=== PATIENT | female | born 1950 | race Caucasian/White ===

== ENCOUNTER 2018-05-25 05:36 | Inpatient (IN) | payer MEDICARE, BC ==
[~2018-05-25] VITALS: Ht 157.5 cm; Wt 50.4 kg
[2018-05-25] VITALS (19 sets, daily range): BP systolic 110–147; BP diastolic 48–68; PULSE 82–108; RESP 10–20; Ht 157.5 cm; Wt 50.4 kg
[2018-05-25] MEDS ORDERED: CEFAZOLIN 2 GM/50 ML (PMX) 50 ML IVPB SCH (06:00)
[2018-05-25] MEDS ORDERED: LACTATED RINGER'S 1,000 ML IV* ONE (06:00)
[2018-05-25] MEDS ORDERED: THROMBIN (BOVINE) 5,000 UNIT VIAL TP ONE (07:02)
[2018-05-25] MEDS ORDERED: HEPARIN 1000 UNITS/ML 10 ML INJ ONE (07:02)
[2018-05-25] MEDS ORDERED: GELATIN SIZE 100 SPONGE ONE (07:02)
[2018-05-25] MEDS ORDERED: CEFAZOLIN 1 GM INJ ONE ×2 (07:02→07:42)
[2018-05-25] MEDS ORDERED: BUPIVACAINE 0.5%/EPI (SDV) 30 ML INJ ONE ×2 (07:02→12:50)
[2018-05-25] MEDS ORDERED: THYR120T PO (07:11)
[2018-05-25] MEDS ORDERED: BUPR300T48 PO (07:11)
[2018-05-25] MEDS ORDERED: SUVO10TA2 PO (07:12)
[2018-05-25] MEDS ORDERED: QUET25TA33 PO (07:13)
[2018-05-25] MEDS ORDERED: CITA20TA8 PO (07:14)
--- NOTE | 2018-05-25 07:22 | PREAC ---
Date/Time of Note Date/Time of Note DATE: 05/25/18 TIME: 07:21 Anesthesia Eval and Record Evaluation Time Pre-Procedure Interview DATE: 05/25/18 TIME: 07:21 Age 67 Sex female NPO: 8 hrs Preoperative diagnosis Lumbar DDD Planned procedure L2-5 anterior lumbar fusion Past Medical History Past Medical History: Includes Endo: Hypothyroid Surgery & Anesthesia Issues No known issue Meds Anticoagulation: No Beta Verónica within 24 hr: No Reason Beta Verónica not given: Pt. not on B-Verónica Reported Medications Citalopram Hydrobromide* (Citalopram Hydrobromide*) 20 Mg Tablet, 20 MG PO DAILY, #30 TAB 05/25/18 Quetiapine Fumarate* (Quetiapine Fumarate*) 25 Mg Tablet, 25 MG PO BID 05/25/18 Suvorexant (Belsomra) 10 Mg Tablet, 10 MG PO BID 05/25/18 Thyroid* ([place] Thyroid*) 120 Mg Tablet, 120 MG PO DAILY, TAB 05/25/18 Bupropion Hcl* (Wellbutrin XL*) 300 Mg Tab.sr.24h, 300 MG PO DAILY, TAB.SA 05/25/18 Current Medications Cefazolin Sodium/ Dextrose 50 ml @ 100 mls/hr PRE-OP IVPB ; Start 05/25/18 at 06:00; Stop 05/25/18 at 16:00 Meds reviewed: Yes Allergies Coded Allergies: Sulfa (Sulfonamide Antibiotics) (Verified Allergy, Unknown, 05/25/18) Allergies Reviewed: Yes Labs/Studies Labs Reviewed: Reviewed by anesthesiologist Blood Bank Test 05/25/18 06:31 Blood Product Summary Counts test: Negative Studies: ECG Pre-procedure Exam Last vitals Vital Signs Date Temp Pulse Resp B/P (MAP) Pulse Ox O2 O2 Flow FiO2 Time Delivery Rate 05/25/18 97.7 82 18 110/59 97 Room Air 06:27 (76) Airway: Adequate mouth opening, Adequate thyromental dist Mallampati: Mallampati II Teeth: Normal Lung: Normal Heart: Normal ASA Physical Status ASA physical status: 2 Emergency: None Planned Anesthetic General/MAC: ETT, A Line Pre-operative Attestations Prior to commencing anesthesia and surgery, the patient was re-evaluated, there was verification of: *The patient's identity *The results of appropriate recent lab work and preoperative vital signs *The above evaluation not changing prior to induction *Anesthetic plan, risk benefits, alternative and complications discussed with patient/family; questions answered; patient/family understands, accepts and wishes to proceed. PINO WATKINS May 25, 2018 07:22
--- NOTE | 2018-05-25 07:23 | HPN ---
Date/Time of Note Date/Time of Note DATE: 05/25/18 TIME: 07:22 Interval H&P Admission Note Pt. seen H&P reviewed: No system changes MARY JUAREZ MD May 25, 2018 07:23
[2018-05-25] MEDS ORDERED: HYDROmorphONE 1 MG/5 ML IV SYRINGE IV PRN ×3 (07:30)
[2018-05-25] MEDS ORDERED: ONDANSETRON 4 MG INJ IV PRN ×2 (07:30→15:00)
[2018-05-25] MEDS ORDERED: DIPHENHYDRAMINE 50 MG INJ IV PRN (07:30)
[2018-05-25] MEDS ORDERED: ALBUTEROL 0.083% (NEB) 2.5 MG/3 ML AMP HHN PRN (07:30)
[2018-05-25] MEDS ORDERED: METOCLOPRAMIDE 10 MG INJ IV PRN (07:30)
[2018-05-25] MEDS ORDERED: MEPERIDINE 25 MG INJ IV PRN (07:30)
[2018-05-25] MEDS ORDERED: FENTAnyl 50 MCG/ML VIAL IV PRN ×2 (07:30)
[2018-05-25] MEDS ORDERED: LIDOCAINE 100 MG SYRINGE ONE (07:42)
[2018-05-25] MEDS ORDERED: PROPOFOL 20 ML ONE (07:42)
[2018-05-25] MEDS ORDERED: SUCCINYLCHOLINE CHLORIDE 100 MG/5 ML SYG IV ONE (07:42)
[2018-05-25] MEDS ORDERED: FENTAnyl 50 MCG/ML VIAL ONE ×4 (07:42→12:09)
[2018-05-25] MEDS ORDERED: MIDAZOLAM 1 MG/ML 2 ML INJ ONE (08:04)
[2018-05-25] MEDS ORDERED: HEMOSTATIC MATRIX SYG ZFS ONE (09:19)
[2018-05-25] MEDS ORDERED: DEXAMETHASONE 4 MG/ML 5 ML INJ ONE (11:10)
[2018-05-25] MEDS ORDERED: AL HYDROX/MG HYDROX/SIMETH 30 ML CUP PO PRN (15:00)
[2018-05-25] MEDS ORDERED: NALOXONE (0.4 MG/ML) INJ IV PRN (15:00)
[2018-05-25] MEDS ORDERED: HYDROCODONE/APAP (5/325) TAB PO PRN ×2 (15:00)
[2018-05-25] MEDS ORDERED: PROCHLORPERAZINE 10 MG TAB PO PRN (15:00)
[2018-05-25] MEDS ORDERED: NACL 0.9% 3 ML SYG IV SCH (15:00)
[2018-05-25] MEDS ORDERED: ACETAMINOPHEN 325 MG TAB PO PRN (15:00)
--- NOTE | 2018-05-25 15:16 | OPR ---
Date/Time of Note Date/Time of Note DATE: 05/25/18 TIME: 14:56 Operative Report Free Text/Dictation DATE OF OPERATION: 05/25/2018 PREOPERATIVE DIAGNOSES: 1. L3-4 degenerative disk disease with foraminal stenosis and adult scoliosis w/ positive sagittal balance spinal stenosis 2. L4-5 degenerative disk disease with foraminal stenosis and adult scoliosis w/ positive sagittal balance spinal stenosis POSTOPERATIVE DIAGNOSES: 1. L3-4 degenerative disk disease with foraminal stenosis and adult scoliosis w/ positive sagittal balance spinal stenosis 2. L4-5 degenerative disk disease with foraminal stenosis and adult scoliosis w/ positive sagittal balance spinal stenosis OPERATION PERFORMED: 1. Anterior lumbar interbody fusion via transpsoas approach L3-4 2. Anterior lumbar interbody fusion via transpsoas approach L4-5 3. Placement of anterior interbody device L3-4 4. Placement of anterior interbody device L4-5 4.. Placement of posterior spinal segmental instrumentation L3-5 4. Posterior spinal fusion L3-5 5. Use of morselized allograft bone. SURGEON: Mary Juarez MD ANESTHESIA: General endotracheal. ESTIMATED BLOOD LOSS: 250 cc SURGICAL INDICATION: The patient is a 67 year-old woman who presents with an increasing history of back and buttuck and leg pain. The patient was found to have severe degenerative disk disease with foraminal stenosis at L3-4 and L4- L5 with scoliosis and positive sagittal balance. The patient had failed conservative treatments. Risks, benefits and alternatives to an anterior and posterior spinal fusion with instrumentation were explained to the patient including but not exclusive of bleeding, infection, visceral injury, nerve injury, nonunion, instrumentation failure, lack of symptom relief, myocardial infarction, stroke, and pulmonary embolism, and they wished to proceed. DESCRIPTION OF TECHNIQUE: The patient was identified in the preoperative area and taken to the operating room. Rapid induction of general endotracheal anesthesia was performed. Patient was given 2 g of cefazolin for prophylaxis. The patient was then placed in the right lateral decubitus position (left side up) with an axillary roll placed. Tape was applied across the torso and down the legs for further stabilization of the patient to the table. The left flank was then prepped and draped in the usual sterile manner. Using intraoperative fluoroscopy, the L4-5 disc space was then clearly identified. The skin was injected using 0.25% Marcaine with epinephrine. A posterolateral incision was then created using a 10 blade. Further dissection through soft tissue was performed bluntly using Metzenbaum scissors to enter the retroperitoneal space. Manual palpation was used to palpate the peritoneum and the peritoneum was swept in a ventral direction. A direct lateral incision was then created using a 10 blade. Further dissection through soft tissue was again performed bluntly using Metzenbaum scissors, guided manually through the posterolateral incision. The retroperitoneal space was then directly entered. . Manual palpation was used to palpate the peritoneum and the peritoneum was swept in a ventral direction. The starting dilator was guided down to the lateral aspect of the psoas muscle, while protecting the peritoneum. Both intraoperative fluoroscopy, as well as neuromonitoring were used to guide the dilator down to the lateral aspect of the disc space, while avoiding the lumbar plexus. A guidewire was then passed through the dilator into the disc space itself. Sequential dilation was performed. A final retractor was applied and stabilized to the table. The retractor was opened gently, just enough to visualize the lateral aspect of the disc space. Fibers of the psoas muscle were directly visualized and gently swept ventrally using a retractor. Again, the surgical field was probe to ensure that no neural elements remained in the surgical field itself. Attention was turned toward the anterior lumbar interbody fusion at L4-5. The lateral anulus was incised using a 15 blade. Disk material was then removed using pituitary rongeurs and curettes. Care was taken to release the contralateral anulus using Greenberg elevators. The endplates were then decorticated using a rasp. Attention was turned toward placement of the anterior interbody device at L4-5. Trial spacers were inserted. A 8 x 18 x 45 mm PEEK cage (10 degree lordotic) was then selected and filled using Osteocel pro morcellized allograft bone with stem cells. The cage was inserted into the disc space and malleted into place over slides. AP and lateral views of fluoroscopy confirmed the appropriate placement of the cage. We then focused on the L3-4 level. Using intraoperative fluoroscopy, the L3-4 disc space was clearly identified. The skin was injected using 0.25% Marcaine with epinephrine. A posterolateral incision was then created using a 10 blade. Further dissection through soft tissue was performed bluntly using Metzenbaum scissors to enter the retroperitoneal space. Manual palpation was used to palpate the peritoneum and the peritoneum was swept in a ventral direction. A direct lateral incision was then created using a 10 blade. Further dissection through soft tissue was again performed bluntly using Metzenbaum scissors, guided manually through the posterolateral incision. The retroperitoneal space was then directly entered. The starting dilator was guided down to the lateral aspect of the psoas muscle, while protecting the peritoneum. Both intraoperative fluoroscopy, as well as neuromonitoring were used to guide the dilator down to the lateral aspect of the disc space, while avoiding the lumbar plexus. A guidewire was then passed through the dilator into the disc space itself. Sequential dilation was performed. A final retractor was applied and stabilized to the table. The retractor was opened gently, just enough to visualize the lateral aspect of the disc space. Fibers of the psoas muscle were directly visualized and gently swept ventrally using a retractor. Again, the surgical field was probed to ensure that no neural elements remained in the surgical field itself. Attention was turned toward the anterior lumbar interbody fusion at L3-4. The lateral anulus was incised using a 15 blade. Disk material was then removed using pituitary rongeurs and curettes. Care was taken to release the contralateral anulus using Greenberg elevators. The endplates were then decorticated using a rasp. Attention was turned toward placement of the anterior interbody device at L3-4. Trial spacers were inserted. A 8 x 18 x 45 mm PEEK cage (10 degree lordotic) was then selected and filled using Osteocel pro morcellized allograft bone with stem cells. The cage was inserted into the disc space and malleted into place over slides. AP and lateral views of fluoroscopy confirmed the appropriate placement of the cage. The incisions were then copiously irrigated using sterile saline. As we removed the retractor we made sure that there was no loops of bowel and we were in the retroperitoneal cavity. The fascia was then closed in layers using 1 vicryl. Subcutaneous tissue was closed using 2-0 Vicryl in interrupted fashion. Skin was closed using a running 4-0 Monocryl stitch. The wounds were dressed using Dermabond, sterole 4x4 gauze and Tegaderm. Attention was turned toward placement of posterior spinal segmental instrumentation. The patient was flipped to the prone position on a Hunter table. All her bony prominensces were well padded. The patient was prepped and draped in the usual sterile manner. in Another time out was held. Using intraoperative fluoroscopy, the pedicles were identified at each level (L3, L4 and L5). Care was taken to alter the fluoroscopic view to have a true AP and lateral at each level. Jamshidi needles were then passed down to the lateral aspect of the pedicles through stab incisions. The Jamshidi needles were malleted into the pedicles. Care was taken to ensure that the needles did not pass the medial wall of the pedicle on the AP view prior to checking that the needle was past the posterior wall of the vertebral body. This was laos checked on the lateral view. The needles were then malleted further into the vertebral bodies themselves. Guidewires were passed through the needles and the needles were removed. Taps were applied over the guidewires. Screws were then placed bilaterally into the vertebral bodies. AP and lateral views confirmed appropriate placement of the instrumentation. The Jamshidi needles and taps were all advanced with neurominitoring. Attention was turned toward the posterior spinal fusion at L3-5. Rods were selected of the appropriate length and placed into the screw heads. End caps were applied and final tightening was performed using a tilfio-[id number]-nxxopn wrench. The exposed facet joints were decorticated using a high-speed bur. A small remaining amount of Osteocel was placed into the facet joints to facilitate the posterior fusion. All screws were stimulated to help ensure that there was no breach. The wound was irrigated copiously using normal saline. The fascia was then closed using 1 Vicryl in interrupted fashion. Subcutaneous tissue was closed using 2-0 Vicryl in interrupted fashion. Skin was closed using a running 4-0 Monocryl stitch. The wounds were dressed using Dermabond, sterile 4x4 gauze and Tegaderm. The patient was returned to the supine position. The patient was extubated immediately postoperatively and taken to the recovery room in stable condition. Procedure Date: May 25, 2018 Preoperative Diagnosis 1. L3-4 degenerative disk disease with foraminal stenosis and adult scoliosis w/ positive sagittal balance spinal stenosis 2. L4-5 degenerative disk disease with foraminal stenosis and adult scoliosis w/ positive sagittal balance spinal stenosis Postoperative Diagnosis 1. L3-4 degenerative disk disease with foraminal stenosis and adult scoliosis w/ positive sagittal balance spinal stenosis 2. L4-5 degenerative disk disease with foraminal stenosis and adult scoliosis w/ positive sagittal balance spinal stenosis Operation/Procedure Performed 1. Anterior lumbar interbody fusion via transpsoas approach L3-4 2. Anterior lumbar interbody fusion via transpsoas approach L4-5 3. Placement of anterior interbody device L3-4 4. Placement of anterior interbody device L4-5 4.. Placement of posterior spinal segmental instrumentation L3-5 4. Posterior spinal fusion L3-5 5. Use of morselized allograft bone. Surgeon see signature line Scientific Process Operator ALEXY Albarran Anesthesia Type: general Estimated Blood Loss: 200 - 250 ml's Transfusion none Specimen None Grafts/Implants Nuvasive XLIF [id number] mm 10 degree lordotic cages x 2 NuVasive Pedicle Screws L3: 4.5 x 35 x 2 L4: 5.5 x 40 mm x2 L5: 6.5 mm x 40 mm x 2 70 mm Rods x 2 Complications none Pt Condition Post Procedure: stable Disposition: PACU Procedure Description DESCRIPTION OF TECHNIQUE: The patient was identified in the preoperative area and taken to the operating room. Rapid induction of general endotracheal anesthesia was performed. Patient was given 2 g of cefazolin for prophylaxis. The patient was then placed in the right lateral decubitus position (left side up) with an axillary roll placed. Tape was applied across the torso and down the legs for further stabilization of the patient to the table. The left flank was then prepped and draped in the usual sterile manner. Using intraoperative fluoroscopy, the L4-5 disc space was then clearly identified. The skin was injected using 0.25% Marcaine with epinephrine. A posterolateral incision was then created using a 10 blade. Further dissection through soft tissue was performed bluntly using Metzenbaum scissors to enter the retroperitoneal space. Manual palpation was used to palpate the peritoneum and the peritoneum was swept in a ventral direction. A direct lateral incision was then created using a 10 blade. Further dissection through soft tissue was again performed bluntly using Metzenbaum scissors, guided manually through the posterolateral incision. The retroperitoneal space was then directly entered. . Manual palpation was used to palpate the peritoneum and the peritoneum was swept in a ventral direction. The starting dilator was guided down to the lateral aspect of the psoas muscle, while protecting the peritoneum. Both intraoperative fluoroscopy, as well as neuromonitoring were used to guide the dilator down to the lateral aspect of the disc space, while avoiding the lumbar plexus. A guidewire was then passed through the dilator into the disc space itself. Sequential dilation was performed. A final retractor was applied and stabilized to the table. The retractor was opened gently, just enough to visualize the lateral aspect of the disc space. Fibers of the psoas muscle were directly visualized and gently swept ventrally using a retractor. Again, the surgical field was probe to ensure that no neural elements remained in the surgical field itself. Attention was turned toward the anterior lumbar interbody fusion at L4-5. The lateral anulus was incised using a 15 blade. Disk material was then removed using pituitary rongeurs and curettes. Care was taken to release the contralateral anulus using Greenberg elevators. The endplates were then decorticated using a rasp. Attention was turned toward placement of the anterior interbody device at L4-5. Trial spacers were inserted. A 8 x 18 x 45 mm PEEK cage (10 degree lordotic) was then selected and filled using Osteocel pro morcellized allograft bone with stem cells. The cage was inserted into the disc space and malleted into place over slides. AP and lateral views of fluoroscopy confirmed the appropriate placement of the cage. We then focused on the L3-4 level. Using intraoperative fluoroscopy, the L3-4 disc space was clearly identified. The skin was injected using 0.25% Marcaine with epinephrine. A posterolateral incision was then created using a 10 blade. Further dissection through soft tissue was performed bluntly using Metzenbaum scissors to enter the retroperitoneal space. Manual palpation was used to palpate the peritoneum and the peritoneum was swept in a ventral direction. A direct lateral incision was then created using a 10 blade. Further dissection through soft tissue was again performed bluntly using Metzenbaum scissors, guided manually through the posterolateral incision. The retroperitoneal space was then directly entered. The starting dilator was guided down to the lateral aspect of the psoas muscle, while protecting the peritoneum. Both intraoperative fluoroscopy, as well as neuromonitoring were used to guide the dilator down to the lateral aspect of the disc space, while avoiding the lumbar plexus. A guidewire was then passed through the dilator into the disc space itself. Sequential dilation was performed. A final retractor was applied and stabilized to the table. The retractor was opened gently, just enough to visualize the lateral aspect of the disc space. Fibers of the psoas muscle were directly visualized and gently swept ventrally using a retractor. Again, the surgical field was probed to ensure that no neural elements remained in the surgical field itself. Attention was turned toward the anterior lumbar interbody fusion at L3-4. The lateral anulus was incised using a 15 blade. Disk material was then removed using pituitary rongeurs and curettes. Care was taken to release the contralateral anulus using Greenberg elevators. The endplates were then decorticated using a rasp. Attention was turned toward placement of the anterior interbody device at L3-4. Trial spacers were inserted. A 8 x 18 x 45 mm PEEK cage (10 degree lordotic) was then selected and filled using Osteocel pro morcellized allograft bone with stem cells. The cage was inserted into the disc space and malleted into place over slides. AP and lateral views of fluoroscopy confirmed the appropriate placement of the cage. The incisions were then copiously irrigated using sterile saline. As we removed the retractor we made sure that there was no loops of bowel and we were in the retroperitoneal cavity. The fascia was then closed in layers using 1 vicryl. Subcutaneous tissue was closed using 2-0 Vicryl in interrupted fashion. Skin was closed using a running 4-0 Monocryl stitch. The wounds were dressed using Dermabond, sterole 4x4 gauze and Tegaderm. Attention was turned toward placement of posterior spinal segmental instrumentation. The patient was flipped to the prone position on a Hunter table. All her bony prominensces were well padded. The patient was prepped and draped in the usual sterile manner. in Another time out was held. Using intraoperative fluoroscopy, the pedicles were identified at each level (L3, L4 and L5). Care was taken to alter the fluoroscopic view to have a true AP and lateral at each level. Jamshidi needles were then passed down to the lateral aspect of the pedicles through stab incisions. The Jamshidi needles were ma lleted into the pedicles. Care was taken to ensure that the needles did not pass the medial wall of the pedicle on the AP view prior to checking that the needle was past the posterior wall of the vertebral body. This was laos checked on the lateral view. The needles were then malleted further into the vertebral bodies themselves. Guidewires were passed through the needles and the needles were removed. Taps were applied over the guidewires. Screws were then placed bilaterally into the vertebral bodies. AP and lateral views confirmed appropriate placement of the instrumentation. The Jamshidi needles and taps were all advanced with neurominitoring. Attention was turned toward the posterior spinal fusion at L3-5. Rods were selected of the appropriate length and placed into the screw heads. End caps were applied and final tightening was performed using a rjolcm-stajeat-tktlxc wrench. The exposed facet joints were decorticated using a high-speed bur. A small remaining amount of Osteocel was placed into the facet joints to facilitate the posterior fusion. All screws were stimulated to help ensure that there was no breach. The wound was irrigated copiously using normal saline. The fascia was then closed using 1 Vicryl in interrupted fashion. Subcutaneous tissue was closed using 2-0 Vicryl in interrupted fashion. Skin was closed using a running 4-0 Monocryl stitch. The wounds were dressed using Dermabond, sterile 4x4 gauze and Tegaderm. The patient was returned to the supine position. The patient was extubated immediately postoperatively and taken to the recovery room in stable condition. MARY JUAREZ MD May 25, 2018 15:08
[2018-05-25] MEDS: FENTAnyl 50 MCG/ML VIAL IV PRN ×2 (15:40→15:53)
[2018-05-25] MEDS: HYDROmorphONE 0.2 MG/ML PCA IV SCH (16:08)
--- NOTE | 2018-05-25 16:46 | CONS ---
Assessment/Plan Assessment/Plan Problems: (1) Spinal stenosis of lumbar region Comment: s/p multilevel ALIF w instrumentation (2) IBS (irritable bowel syndrome) Comment: controlled (3) Insomnia Comment: on Belsomra (4) Anxiety Comment: controlled w celexa/welbutrin/seroquel (5) Bundle branch block, right Comment: asx... ans is s/p normal Echo preop (6) Hypothyroid Comment: on replacement w armour thyroid Consultation Date/Type/Reason Admit Date/Time May 25, 2018 at 05:36 Type of Consult Internal Medicine Reason for Consultation post op medical care and f/u Date/Time of Note DATE: 05/25/18 TIME: 16:29 Hx of Present Illness This patient is seen post op in the RR. She is s/p ALIF w instrumentation. For details of her orthopedic history, please see the full eval per Dr Stevens. She has no hx/o HTN, cp or SOB. No hx/o DM or clotting issues. She does take a statin for hyperlipidemia. Additionally, she did see a rn clinical appeals preop, due to the presence of RBBB on a preop EKG. She had an Echo which revealed LVEF of 60%, with nl wall motion and dimensions. Currently she has stable VS here in the RR. She denies any cp or sob.. No nausea. she is intact neurologically, and having the expected post op pain. Constitutional: no complaints Eyes: no complaints ENT: no complaints Respiratory: no complaints Cardiovascular: no complaints Gastrointestinal: no complaints Genitourinary: no complaints Neurologic: no complaints Past Medical History Medical History: high cholesterol, hypothyroid, irritable bowel syndrome Home Meds Reported Medications Citalopram Hydrobromide* (Citalopram Hydrobromide*) 20 Mg Tablet, 20 MG PO DAILY, #30 TAB 05/25/18 Quetiapine Fumarate* (Quetiapine Fumarate*) 25 Mg Tablet, 25 MG PO BID 05/25/18 Suvorexant (Belsomra) 10 Mg Tablet, 10 MG PO BID 05/25/18 Thyroid* ([place] Thyroid*) 120 Mg Tablet, 120 MG PO DAILY, TAB 05/25/18 Bupropion Hcl* (Wellbutrin XL*) 300 Mg Tab.sr.24h, 300 MG PO DAILY, TAB.SA 05/25/18 Medications Current Medications Acetaminophen/ Hydrocodone Bitart ([place] (5/325)) 1 tab Q4H PRN PO .PAIN 1-5; Start 05/25/18 at 15:00 Acetaminophen/ Hydrocodone Bitart ([place] (5/325)) 2 tab Q4H PRN PO .PAIN 6-10; Start 05/25/18 at 15:00 Cefazolin Sodium 50 ml @ 100 mls/hr Q6 IVPB ; Start 05/25/18 at 18:00; Stop 05/26/18 at 12:29 Prochlorperazine (Compazine) 10 mg Q4H PRN PO NAUSEA/VOMITING; Start 05/25/18 at 15:00 Ondansetron HCl (Zofran Inj) 4 mg Q6H PRN IV NAUSEA/VOMITING; Start 05/25/18 at 15:00 Al Hydrox/Mg Hydrox/Simethicone (Mag-Al Plus) 15 ml Q4H PRN PO .CONSTIPATION; Start 05/25/18 at 15:00 Docusate Sodium (Colace) 100 mg BID PO ; Start 05/26/18 at 09:00 Acetaminophen (Tylenol Tab) 650 mg Q4H PRN PO TEMP GREATER THAN 101F OR RABAGO; Start 05/25/18 at 15:00 IV Flush (NS 3 ml) 3 ml PER PROTOCOL IV ; Start 05/25/18 at 15:00 Hydromorphone HCl (Dilaudid HAIRSPRING STAKER) Q4PCA IV Last administered on 05/25/18at 16:08; Admin Dose 6 MG; Start 05/25/18 at 15:00 Naloxone HCl (Narcan) 0.2 mg Q2M PRN IV RR 8 BREATHS/MIN OR LESS; Start 05/25/18 at 15:00 Allergies: Coded Allergies: Sulfa (Sulfonamide Antibiotics) (Verified Allergy, Severe, SULFA, 05/25/18) PER PT Past Surgical History Past Surgical Hx: other (s/p L THR ) Social History Smoking Status: Never smoker Drug Use: none Exam/Review of Systems Exam Vitals Vital Signs Date Temp Pulse Resp B/P (MAP) Pulse Ox O2 O2 Flow FiO2 Time Delivery Rate 05/25/18 106 12 142/68 99 Nasal 16:15 (92) Cannula 05/25/18 2.0 15:40 05/25/18 98.3 15:25 Constitutional: alert, oriented, well developed Psych: no complaints Head: normocephalic, atraumatic Eyes: nl conjunctiva, EOMI Neck: supple Respiratory: clear to auscultation Cardiovascular: regular rate and rhythm, nl pulses Gastrointestinal: soft, nl liver, spleen, non-tender Musculoskeletal: nl extremities to inspection Extremities: normal pulses Medications Medication Current Medications Acetaminophen/ Hydrocodone Bitart ([place] (5/325)) 1 tab Q4H PRN PO .PAIN 1-5; Start 05/25/18 at 15:00 Acetaminophen/ Hydrocodone Bitart ([place] (5/325)) 2 tab Q4H PRN PO .PAIN 6-10; Start 05/25/18 at 15:00 Cefazolin Sodium 50 ml @ 100 mls/hr Q6 IVPB ; Start 05/25/18 at 18:00; Stop 05/26/18 at 12:29 Prochlorperazine (Compazine) 10 mg Q4H PRN PO NAUSEA/VOMITING; Start 05/25/18 at 15:00 Ondansetron HCl (Zofran Inj) 4 mg Q6H PRN IV NAUSEA/VOMITING; Start 05/25/18 at 15:00 Al Hydrox/Mg Hydrox/Simethicone (Mag-Al Plus) 15 ml Q4H PRN PO .CONSTIPATION; Start 05/25/18 at 15:00 Docusate Sodium (Colace) 100 mg BID PO ; Start 05/26/18 at 09:00 Acetaminophen (Tylenol Tab) 650 mg Q4H PRN PO TEMP GREATER THAN 101F OR RABAGO; Start 05/25/18 at 15:00 IV Flush (NS 3 ml) 3 ml PER PROTOCOL IV ; Start 05/25/18 at 15:00 Hydromorphone HCl (Dilaudid HAIRSPRING STAKER) Q4PCA IV Last administered on 05/25/18at 16:08; Admin Dose 6 MG; Start 05/25/18 at 15:00 Naloxone HCl (Narcan) 0.2 mg Q2M PRN IV RR 8 BREATHS/MIN OR LESS; Start 05/25/18 at 15:00 NOBLE RON MD May 25, 2018 16:39
[2018-05-25] MEDS ORDERED: ZOLPIDEM 5 MG TAB PO PRN (17:00)
[2018-05-25] MEDS: CEFAZOLIN 1 GM/50 ML (PMX) 50 ML IVPB SCH (17:40)
[2018-05-25] MEDS: QUETIAPINE 25 MG TAB PO SCH (20:37)
[2018-05-25] MEDS: ATORVASTATIN 40 MG TAB PO SCH (20:37)
[2018-05-25] MEDS ORDERED: SUVOREXANT 10 MG PO SCH (21:00)
[2018-05-25] MEDS ORDERED: QUETIAPINE 25 MG TAB PO SCH (21:00)
[2018-05-26] MEDS: CEFAZOLIN 1 GM/50 ML (PMX) 50 ML IVPB SCH ×3 (00:31→12:31)
[2018-05-26] MEDS: SUVOREXANT PO SCH ×2 (01:50→22:20)
[2018-05-26] MEDS: HYDROmorphONE 0.2 MG/ML PCA IV SCH ×2 (01:56→14:46)
[2018-05-26 02:00] VITALS: BP 105/55; PULSE 90; RESP 16
[2018-05-26 07:28] VITALS: BP 101/56; PULSE 86; RESP 18
[2018-05-26] MEDS: CITALOPRAM 20 MG TAB PO SCH (09:00)
[2018-05-26] MEDS ORDERED: BUPROPION (XL) 150 MG TAB PO SCH (09:00)
[2018-05-26] MEDS: QUETIAPINE 25 MG TAB PO SCH ×2 (09:00→21:15)
[2018-05-26] MEDS ORDERED: THYROID 60 MG TAB PO SCH (09:00)
[2018-05-26] MEDS ORDERED: CITALOPRAM 20 MG TAB PO SCH (09:00)
--- NOTE | 2018-05-26 10:01 | CONS ---
Assessment/Plan Assessment/Plan Assessment/Plan (Daily) 1. Doing well post op Lumbar back surger 2. Hypothyroidism on replacement.3 3. Labs are pending 4. Await PT Consultation Date/Type/Reason Admit Date/Time May 25, 2018 at 05:36 Initial Consult Date Date/Time of Note DATE: 05/26/18 TIME: 09:59 Detailed Summary Cardiovascular: No chest pain, No lightheadedness Gastrointestinal: no complaints Genitourinary: other (cooney in place) Musculoskeletal: back pain (mod to severe without leg radic pain) Exam/Review of Systems Exam Vitals Vital Signs Date Temp Pulse Resp B/P (MAP) Pulse Ox O2 O2 Flow FiO2 Time Delivery Rate 05/26/18 98.2 86 18 101/56 96 07:28 (71) 05/26/18 Nasal 02:00 Cannula 05/25/18 2.0 20:00 Intake and Output 05/25/18 05/25/18 05/26/18 1515:00 23:00 07:00 IntakeIntake Total 3100 ml 150 ml 390 ml OutputOutput Total 200 ml 300 ml 1300 ml BalanceBalance 2900 ml -150 ml -910 ml Neck: No jvd Respiratory: clear to auscultation Cardiovascular: regular rate and rhythm Gastrointestinal: soft Extremities: No edema Results Results 24hrs Laboratory Tests Test 05/26/18 08:19 Lab Scanned Report REFERENCE LAB Medications Medication Current Medications Acetaminophen/ Hydrocodone Bitart ([place] (5/325)) 1 tab Q4H PRN PO .PAIN 1-5; Start 05/25/18 at 15:00 Acetaminophen/ Hydrocodone Bitart ([place] (5/325)) 2 tab Q4H PRN PO .PAIN 6-10; Start 05/25/18 at 15:00 Cefazolin Sodium 50 ml @ 100 mls/hr Q6 IVPB Last administered on 05/26/18at 06:12; Admin Dose 100 MLS/HR; Start 05/25/18 at 18:00; Stop 05/26/18 at 12:29 Prochlorperazine (Compazine) 10 mg Q4H PRN PO NAUSEA/VOMITING; Start 05/25/18 at 15:00 Ondansetron HCl (Zofran Inj) 4 mg Q6H PRN IV NAUSEA/VOMITING; Start 05/25/18 at 15:00 Al Hydrox/Mg Hydrox/Simethicone (Mag-Al Plus) 15 ml Q4H PRN PO .CONSTIPATION; Start 05/25/18 at 15:00 Docusate Sodium (Colace) 100 mg BID PO ; Start 05/26/18 at 09:00 Acetaminophen (Tylenol Tab) 650 mg Q4H PRN PO TEMP GREATER THAN 101F OR RABAGO; Start 05/25/18 at 15:00 IV Flush (NS 3 ml) 3 ml PER PROTOCOL IV ; Start 05/25/18 at 15:00 Hydromorphone HCl (Dilaudid UNDERWRITING SPECIALIST) Q4PCA IV Last administered on 05/26/18at 01:56; Admin Dose 6 MG; Start 05/25/18 at 15:00 Naloxone HCl (Narcan) 0.2 mg Q2M PRN IV RR 8 BREATHS/MIN OR LESS; Start 05/25/18 at 15:00 Citalopram Hydrobromide (Celexa) 20 mg DAILY PO ; Start 05/26/18 at 09:00 Bupropion HCl (Wellbutrin Xl) 300 mg DAILY PO ; Start 05/26/18 at 09:00 Quetiapine Fumarate (Seroquel) 25 mg BID PO Last administered on 05/25/18at 20:37; Admin Dose 25 MG; Start 05/25/18 at 21:00 Zolpidem Tartrate (Ambien) 5 mg HS MAY REPEAT X 1 PRN PO INSOMNIA; Start 05/25/18 at 17:00 Thyroid ([place] Thyroid) 120 mg DAILY PO ; Start 05/26/18 at 09:00 Atorvastatin Calcium (Lipitor) 40 mg HS PO Last administered on 05/25/18at 20:3 7; Admin Dose 40 MG; Start 05/25/18 at 21:00 Non-Formulary Medication 2 ea HS PO Last administered on 05/26/18at 01:50; Admin Dose 1 EA; Start 05/26/18 at 21:00 DEEPTI HARDY MD May 26, 2018 10:00
[2018-05-26] MEDS: DOCUSATE SODIUM 100 MG CAP PO SCH ×2 (10:11→21:14)
[2018-05-26] MEDS: BUPROPION (XL) 150 MG TAB PO SCH (10:11)
--- NOTE | 2018-05-26 10:11 | PAC ---
Date/Time of Note Date/Time of Note DATE: 05/26/18 TIME: 10:11 Post-Anesthesia Notes Post-Anesthesia Note Last documented vital signs Vital Signs Date Temp Pulse Resp B/P (MAP) Pulse Ox O2 O2 Flow FiO2 Time Delivery Rate 05/26/18 98.2 86 18 101/56 96 07:28 (71) 05/26/18 Nasal 02:00 Cannula 05/25/18 2.0 20:00 Activity: WNL Respiratory function: WNL Cardiovascular function: WNL Mental status: Baseline Pain reasonably controlled: Yes Hydration appropriate: Yes Nausea/Vomiting absent: Yes PINO WATKINS May 26, 2018 10:11
[2018-05-26] MEDS: THYROID 60 MG TAB PO SCH (10:12)
--- NOTE | 2018-05-26 12:58 | CONS ---
Consultation Date/Type/Reason Admit Date/Time May 25, 2018 at 05:36 Initial Consult Date Date/Time of Note DATE: 05/26/18 TIME: 12:53 24 HR Interval Summary Free Text/Dictation S: 67 yo Female POD#1 s/p XLIF L3-L5 w/ PSIF. Patient had no acute events over night. Complains of Left sided low back and hip pain. Denies any numbness. Has not passed gas. She is tolerating a regular diet. O: Vital Signs Date Temp Pulse Resp B/P (MAP) Pulse Ox O2 O2 Flow FiO2 Time Delivery Rate 05/26/18 98.2 86 18 101/56 96 07:28 (71) Gen: AAOx3, NAD Spine: 4/5 left HF otherwise NVI Abdomen: mild distension. no TTP Laboratory Tests 05/26/18 09:45 Laboratory Tests Test 05/26/18 09:45 Blood Urea Nitrogen 9 mg/dl Carbon Dioxide Level 29 mmol/L Chloride Level 102 mmol/L Creatinine 0.67 mg/dl Glucose Level 91 mg/dl Hematocrit 26.7 % Hemoglobin 8.9 g/dl Potassium Level 3.9 mmol/L Sodium Level 139 mmol/L A/P: 67 yo Female POD#1 s/p XLIF L3-L5 w/ PSIF 1. Continue SUPPORT TEACHER for pain control 2. Order rigid LSO brace to wear when OOB 3. D/C cooney [place] if cleared by PT 4. f/u am labs 5. Order Rigid LSO brace Exam/Review of Systems Exam Vitals Vital Signs Date Temp Pulse Resp B/P (MAP) Pulse Ox O2 O2 Flow FiO2 Time Delivery Rate 05/26/18 98.2 86 18 101/56 96 07:28 (71) 05/26/18 Nasal 02:00 Cannula 05/25/18 2.0 20:00 Intake and Output 05/25/18 05/25/18 05/26/18 1515:00 23:00 07:00 IntakeIntake Total 3100 ml 150 ml 390 ml OutputOutput Total 200 ml 300 ml 1300 ml BalanceBalance 2900 ml -150 ml -910 ml Results Result Diagram: 05/26/1845 05/26/18 0945 Results 24hrs Laboratory Tests Test 05/26/18 08:19 05/26/18 09:45 Lab Scanned Report REFERENCE LAB Hemoglobin 8.9 L Hematocrit 26.7 L Sodium Level 139 Potassium Level 3.9 Chloride Level 102 Carbon Dioxide Level 29 Anion Gap 8 Blood Urea Nitrogen 9 Creatinine 0.67 Est Glomerular Filtrat Rate mL/min > 60 Glucose Level 91 Calcium Level 8.4 Medications Medication Current Medications Acetaminophen/ Hydrocodone Bitart ([place] (5/325)) 1 tab Q4H PRN PO .PAIN 1-5; Start 05/25/18 at 15:00 Acetaminophen/ Hydrocodone Bitart ([place] (5/325)) 2 tab Q4H PRN PO .PAIN 6-10; Start 05/25/18 at 15:00 Prochlorperazine (Compazine) 10 mg Q4H PRN PO NAUSEA/VOMITING; Start 05/25/18 at 15:00 Ondansetron HCl (Zofran Inj) 4 mg Q6H PRN IV NAUSEA/VOMITING; Start 05/25/18 at 15:00 Al Hydrox/Mg Hydrox/Simethicone (Mag-Al Plus) 15 ml Q4H PRN PO .CONSTIPATION; Start 05/25/18 at 15:00 Docusate Sodium (Colace) 100 mg BID PO Last administered on 05/26/18 10:11; Admin Dose 100 MG; Start 05/26/18 at 09:00 Acetaminophen (Tylenol Tab) 650 mg Q4H PRN PO TEMP GREATER THAN 101F OR RABAGO; Start 05/25/18 at 15:00 IV Flush (NS 3 ml) 3 ml PER PROTOCOL IV ; Start 05/25/18 at 15:00 Hydromorphone HCl (Dilaudid SUPPORT TEACHER) Q4PCA IV Last administered on 05/26/18at 01:56; Admin Dose 6 MG; Start 05/25/18 at 15:00 Naloxone HCl (Narcan) 0.2 mg Q2M PRN IV RR 8 BREATHS/MIN OR LESS; Start 05/25/18 at 15:00 Citalopram Hydrobromide (Celexa) 20 mg DAILY PO ; Start 05/26/18 at 09:00 Bupropion HCl (Wellbutrin Xl) 300 mg DAILY PO Last administered on 05/26/18 10:11; Admin Dose 300 MG; Start 05/26/18 at 09:00 Quetiapine Fumarate (Seroquel) 25 mg BID PO Last administered on 05/25/18 20:37; Admin Dose 25 MG; Start 05/25/18 at 21:00 Zolpidem Tartrate (Ambien) 5 mg HS MAY REPEAT X 1 PRN PO INSOMNIA; Start 05/08 10/26 at 17:00 Thyroid ([place] Thyroid) 120 mg DAILY PO Last administered on 05/26/18at 10:12; Admin Dose 120 MG; Start 05/26/18 at 09:00 Atorvastatin Calcium (Lipitor) 40 mg HS PO Last administered on 05/25/18 20:37; Admin Dose 40 MG; Start 05/25/18 at 21:00 Non-Formulary Medication 2 ea HS PO Last administered on 05/26/18 01:50; Admin Dose 1 EA; Start 05/26/18 at 21:00 MARY JUAREZ MD May 26, 2018 12:58
[2018-05-26] MEDS ORDERED: ACETAMINOPHEN 1000MG/100ML IV 100 ML IVPB ONE (13:00)
[2018-05-26] MEDS ORDERED: DEXAMETHASONE 10 MG/ML 1 ML INJ IV ONE (14:30)
[2018-05-26 15:22] VITALS: BP 119/62; RESP 19
[2018-05-26 20:01] VITALS: BP 134/62; PULSE 98; RESP 20
[2018-05-26] MEDS: ATORVASTATIN 40 MG TAB PO SCH (21:14)
[2018-05-27 03:40] VITALS: PULSE 102
[2018-05-27 08:36] VITALS: BP 123/60; PULSE 105; RESP 20
[2018-05-27] MEDS: QUETIAPINE 25 MG TAB PO SCH ×2 (09:23→20:45)
[2018-05-27] MEDS: DOCUSATE SODIUM 100 MG CAP PO SCH ×2 (09:23→20:45)
[2018-05-27] MEDS: BUPROPION (XL) 150 MG TAB PO SCH (09:23)
[2018-05-27] MEDS: THYROID 60 MG TAB PO SCH (09:23)
[2018-05-27] MEDS: CITALOPRAM 20 MG TAB PO SCH (09:23)
--- NOTE | 2018-05-27 09:54 | CONS ---
Assessment/Plan Assessment/Plan Assessment/Plan (Daily) 1. Stable post up lumbar back surgery 2. Anemia, stable, iron def, po iron started 3. Mood disorder, stable 4. Cooney to be dc'd and PT in progress Consultation Date/Type/Reason Admit Date/Time May 25, 2018 at 05:36 Initial Consult Date Date/Time of Note DATE: 05/27/18 TIME: 09:52 Detailed Summary ENT: sore throat (mild) Respiratory: No shortness of breath Cardiovascular: No chest pain Gastrointestinal: no complaints Genitourinary: other (cooney) Musculoskeletal: back pain (is moderate) Exam/Review of Systems Exam Vitals Vital Signs Date Temp Pulse Resp B/P (MAP) Pulse Ox O2 O2 Flow FiO2 Time Delivery Rate 05/27/18 98.6 105 20 123/60 93 Room Air 08:36 (81) 05/25/18 2.0 20:00 Intake and Output 05/26/18 05/26/18 05/27/18 1515:00 23:00 07:00 IntakeIntake Total 150 ml 820 ml OutputOutput Total 1500 ml BalanceBalance 150 ml 820 ml -1500 ml Neck: No jvd Respiratory: clear to auscultation Cardiovascular: regular rate and rhythm Gastrointestinal: soft Extremities: No edema, No tenderness Results Result Diagram: 05/27/18 0824 05/27/18 0824 Results 24hrs Laboratory Tests Test 05/27/18 08:24 White Blood Count 10.3 Red Blood Count 2.94 L Hemoglobin 8.8 L Hematocrit 26.8 L Mean Corpuscular Volume 91.2 Mean Corpuscular Hemoglobin 29.9 Mean Corpuscular Hemoglobin Concent 32.8 Red Cell Distribution Width 12.4 Platelet Count 220 Mean Platelet Volume 10.2 Immature Granulocytes % 0.900 H Neutrophils % 76.4 Lymphocytes % 12.2 L Monocytes % 10.4 Eosinophils % 0.0 Basophils % 0.1 Nucleated Red Blood Cells % 0.0 Immature Granulocytes # 0.090 H Neutrophils # 7.9 H Lymphocytes # 1.3 Monocytes # 1.1 H Eosinophils # 0.0 Basophils # 0.0 Nucleated Red Blood Cells # 0.0 Sodium Level 139 Potassium Level 3.8 Chloride Level 101 Carbon Dioxide Level 30 Anion Gap 8 Blood Urea Nitrogen 8 Creatinine 0.63 Est Glomerular Filtrat Rate mL/min > 60 Glucose Level 95 Calcium Level 8.5 Phosphorus Level 2.7 Magnesium Level 2.1 Iron Level 17 L Total Iron Binding Capacity 234 L Percent Iron Saturation 7 L Medications Medication Current Medications Acetaminophen/ Hydrocodone Bitart ([place] (5/325)) 1 tab Q4H PRN PO .PAIN 1-5; Start 05/25/18 at 15:00 Acetaminophen/ Hydrocodone Bitart ([place] (5/325)) 2 tab Q4H PRN PO .PAIN 6-10; Start 05/25/18 at 15:00 Prochlorperazine (Compazine) 10 mg Q4H PRN PO NAUSEA/VOMITING; Start 05/25/18 at 15:00 Ondansetron HCl (Zofran Inj) 4 mg Q6H PRN IV NAUSEA/VOMITING; Start 05/25/18 at 15:00 Al Hydrox/Mg Hydrox/Simethicone (Mag-Al Plus) 15 ml Q4H PRN PO .CONSTIPATION; Start 05/25/18 at 15:00 Docusate Sodium (Colace) 100 mg BID PO Last administered on 05/27/18 09:23; Admin Dose 100 MG; Start 05/26/18 at 09:00 Acetaminophen (Tylenol Tab) 650 mg Q4H PRN PO TEMP GREATER THAN 101F OR RABAGO; Start 05/25/18 at 15:00 IV Flush (NS 3 ml) 3 ml PER PROTOCOL IV ; Start 05/25/18 at 15:00 Hydromorphone HCl (Dilaudid TRANSMISSION TESTER) Q4PCA IV Last administered on 05/26/18at 14:46; Admin Dose 6 MG; Start 05/25/18 at 15:00 Naloxone HCl (Narcan) 0.2 mg Q2M PRN IV RR 8 BREATHS/MIN OR LESS; Start 05/25/18 at 15:00 Citalopram Hydrobromide (Celexa) 20 mg DAILY PO Last administered on 05/27/18 09:23; Admin Dose 20 MG; Start 05/26/18 at 09:00 Bupropion HCl (Wellbutrin Xl) 300 mg DAILY PO Last administered on 05/27/18 09:23; Admin Dose 300 MG; Start 05/26/18 at 09:00 Quetiapine Fumarate (Seroquel) 25 mg BID PO Last administered on 05/27/18 09:23; Admin Dose 25 MG; Start 05/25/18 at 21:00 Zolpidem Tartrate (Ambien) 5 mg HS MAY REPEAT X 1 PRN PO INSOMNIA; Start 05/25/18 at 17:00 Thyroid ([place] Thyroid) 120 mg DAILY PO Last administered on 05/27/18 09:23; Admin Dose 120 MG; Start 05/26/18 at 09:00 Atorvastatin Calcium (Lipitor) 40 mg HS PO Last administered on 05/26/18 21 :14; Admin Dose 40 MG; Start 05/25/18 at 21:00 Non-Formulary Medication 2 ea HS PO Last administered on 05/26/18 22:20; Admin Dose 2 EA; Start 05/26/18 at 21:00 DEEPTI HARDY MD May 27, 2018 09:54
[2018-05-27] MEDS ORDERED: METHOCARBAMOL 500 MG TAB PO PRN (10:30)
[2018-05-27] MEDS ORDERED: HYDROmorphONE 0.5 MG/0.5 ML SYG IV PRN (10:30)
[2018-05-27] MEDS ORDERED: OXYCODONE/ACETAMINOPHEN (5/325) TAB PO PRN (10:30)
[2018-05-27] MEDS: OXYCODONE/ACETAMINOPHEN (5/325) TAB PO PRN ×3 (11:23→23:02)
[2018-05-27 14:11] VITALS: BP 88/51; PULSE 104; RESP 20
[2018-05-27 14:30] VITALS: BP 104/53
[2018-05-27 19:45] VITALS: BP 137/64; PULSE 103; RESP 20
[2018-05-27] MEDS: ATORVASTATIN 40 MG TAB PO SCH (20:45)
[2018-05-27] MEDS: FERROUS FUMARATE (SR) TAB PO SCH (20:45)
[2018-05-27] MEDS: SUVOREXANT PO SCH (22:13)
[2018-05-28 02:50] VITALS: BP 133/71; PULSE 93; RESP 20
[2018-05-28] MEDS: OXYCODONE/ACETAMINOPHEN (5/325) TAB PO PRN ×2 (05:37→11:52)
[2018-05-28 07:22] VITALS: BP 128/71; PULSE 88; RESP 19
[2018-05-28] MEDS: QUETIAPINE 25 MG TAB PO SCH ×2 (08:27→20:54)
[2018-05-28] MEDS: DOCUSATE SODIUM 100 MG CAP PO SCH ×2 (08:27→20:54)
[2018-05-28] MEDS: CITALOPRAM 20 MG TAB PO SCH (08:27)
[2018-05-28] MEDS: FERROUS FUMARATE (SR) TAB PO SCH ×2 (08:27→20:54)
[2018-05-28] MEDS: THYROID 60 MG TAB PO SCH (08:28)
[2018-05-28] MEDS: BUPROPION (XL) 150 MG TAB PO SCH (08:28)
--- NOTE | 2018-05-28 10:42 | CONS ---
Assessment/Plan Assessment/Plan Assessment/Plan (Daily) 1. Post op right leg radic sxs. 2. Mood disorder, stable 3. Anemia is stable Consultation Date/Type/Reason Admit Date/Time May 25, 2018 at 05:36 Initial Consult Date Date/Time of Note DATE: 05/28/18 TIME: 10:40 Detailed Summary Respiratory: No shortness of breath Cardiovascular: No chest pain, No lightheadedness Gastrointestinal: no complaints Genitourinary: no complaints Musculoskeletal: back pain (is moderate and has pain right SI area rad to right leg) Exam/Review of Systems Exam Vitals Vital Signs Date Temp Pulse Resp B/P (MAP) Pulse Ox O2 O2 Flow FiO2 Time Delivery Rate 05/28/18 98.7 88 19 128/71 93 07:22 (90) 05/28/18 Room Air 02:50 05/25/18 2.0 20:00 Intake and Output 05/27/18 05/27/18 05/28/18 1515:00 23:00 07:00 IntakeIntake Total 360 ml 480 ml OutputOutput Total 300 ml BalanceBalance 360 ml 180 ml Neck: No jvd Respiratory: clear to auscultation Cardiovascular: regular rate and rhythm Gastrointestinal: soft Extremities: No calf tenderness, No edema Neurological: No focal weakness Results Result Diagram: 05/28/18 1020 05/27/18 0824 Results 24hrs Laboratory Tests Test 05/28/18 10:20 White Blood Count 8.1 # Red Blood Count 2.80 L Hemoglobin 8.5 L Hematocrit 25.6 L Mean Corpuscular Volume 91.4 Mean Corpuscular Hemoglobin 30.4 Mean Corpuscular Hemoglobin Concent 33.2 Red Cell Distribution Width 12.6 Platelet Count 210 Mean Platelet Volume 9.6 Immature Granulocytes % 1.100 H Neutrophils % 75.3 Lymphocytes % 13.8 L Monocytes % 9.1 Eosinophils % 0.5 Basophils % 0.2 Nucleated Red Blood Cells % 0.0 Immature Granulocytes # 0.090 H Neutrophils # 6.1 Lymphocytes # 1.1 Monocytes # 0.7 Eosinophils # 0.0 Basophils # 0.0 Nucleated Red Blood Cells # 0.0 Medications Medication Current Medications Prochlorperazine (Compazine) 10 mg Q4H PRN PO NAUSEA/VOMITING; Start 05/25/18 at 15:00 Ondansetron HCl (Zofran Inj) 4 mg Q6H PRN IV NAUSEA/VOMITING; Start 05/25/18 at 15:00 Al Hydrox/Mg Hydrox/Simethicone (Mag-Al Plus) 15 ml Q4H PRN PO .CONSTIPATION; Start 05/25/18 at 15:00 Docusate Sodium (Colace) 100 mg BID PO Last administered on 05/28/18 08:27; Admin Dose 100 MG; Start 05/26/18 at 09:00 Acetaminophen (Tylenol Tab) 650 mg Q4H PRN PO TEMP GREATER THAN 101F OR RABAGO; Start 05/25/18 at 15:00 IV Flush (NS 3 ml) 3 ml PER PROTOCOL IV ; Start 05/25/18 at 15:00 Naloxone HCl (Narcan) 0.2 mg Q2M PRN IV RR 8 BREATHS/MIN OR LESS; Start 05/25/18 at 15:00 Citalopram Hydrobromide (Celexa) 20 mg DAILY PO Last administered on 05/28/18 08:27; Admin Dose 20 MG; Start 05/26/18 at 09:00 Bupropion HCl (Wellbutrin Xl) 300 mg DAILY PO Last administered on 05/28/18 08:28; Admin Dose 300 MG; Start 05/26/18 at 09:00 Quetiapine Fumarate (Seroquel) 25 mg BID PO Last administered on 05/28/18 08:27; Admin Dose 25 MG; Start 05/25/18 at 21:00 Zolpidem Tartrate (Ambien) 5 mg HS MAY REPEAT X 1 PRN PO INSOMNIA; Start 05/25/18 at 17:00 Thyroid ([place] Thyroid) 120 mg DAILY PO Last administered on 05/28/18 08:28; Admin Dose 120 MG; Start 05/26/18 at 09:00 Atorvastatin Calcium (Lipitor) 40 mg HS PO Last administered on 05/27/18 20:45; Admin Dose 40 MG; Start 05/25/18 at 21:00 Non-Formulary Medication 2 ea HS PO Last administered on 05/27/18 22:13; Admin Dose 2 EA; Start 05/26/18 at 21:00 Docusate Sodium/ Ferrous Fumarate ([place]-[employer]) 1 tab BID PO Last administered on 05/28/18 08:27; Admin Dose 1 TAB; Start 05/27/18 at 21:00 Oxycodone/ Acetaminophen (Percocet (5/ 325)) 1 tab Q4H PRN PO MODERATE PAIN LEVEL 4-6; Start 05/27/18 at 10:30 Oxycodone/ Acetaminophen (Percocet (5/ 325)) 2 tab Q4H PRN PO MODERATE PAIN LEVEL 4-6 Last administered on 05/28/18at 05:37; Admin Dose 2 TAB; Start 05/27/18 at 10:30 Hydromorphone HCl (Dilaudid) 0.5 mg Q3H PRN IV SEVERE PAIN LEVEL 7-10; Start 05/27/18 at 10:30 Methocarbamol (Robaxin) 500 mg TID PRN PO MUSCLE SPASMS; Start 05/27/18 at 10:30 DEEPTI HARDY MD May 28, 2018 10:42
--- NOTE | 2018-05-28 12:20 | CONS ---
Consultation Date/Type/Reason Admit Date/Time May 25, 2018 at 05:36 Initial Consult Date Date/Time of Note DATE: 05/28/18 TIME: 12:00 24 HR Interval Summary Free Text/Dictation S: 67 yo F POD#1 s/p L3-L5 XLIF w/ PSIF. Patient w/ Left sided hip pain likely related to approach. No acute events. tolerating regular diet. Pain controlled w/ percocet. O: AFVSS Gen: AAOx3, NAD Spine: 4/5 Left HF, otherwise NVI, incisions are C/D/I A/P:67 yo F POD#1 s/p L3-L5 XLIF w/ PSIF 1. OOB w/ PT, acute rehab consult 2. Toradol 30 mg IV x 2 3. Neurontin 300 mg PO TID 4. XR L spine today 5. dispo planning for tomorrow Exam/Review of Systems Exam Vitals Vital Signs Date Temp Pulse Resp B/P (MAP) Pulse Ox O2 O2 Flow FiO2 Time Delivery Rate 05/28/18 98.7 88 19 128/71 93 07:22 (90) 05/28/18 Room Air 02:50 05/25/18 2.0 20:00 Intake and Output 05/27/18 05/27/18 05/28/18 1515:00 23:00 07:00 IntakeIntake Total 360 ml 480 ml OutputOutput Total 300 ml BalanceBalance 360 ml 180 ml Results Result Diagram: 05/28/18 1020 05/27/18 0824 Results 24hrs Laboratory Tests Test 05/28/18 10:20 White Blood Count 8.1 # Red Blood Count 2.80 L Hemoglobin 8.5 L Hematocrit 25.6 L Mean Corpuscular Volume 91.4 Mean Corpuscular Hemoglobin 30.4 Mean Corpuscular Hemoglobin Concent 33.2 Red Cell Distribution Width 12.6 Platelet Count 210 Mean Platelet Volume 9.6 Immature Granulocytes % 1.100 H Neutrophils % 75.3 Lymphocytes % 13.8 L Monocytes % 9.1 Eosinophils % 0.5 Basophils % 0.2 Nucleated Red Blood Cells % 0.0 Immature Granulocytes # 0.090 H Neutrophils # 6.1 Lymphocytes # 1.1 Monocytes # 0.7 Eosinophils # 0.0 Basophils # 0.0 Nucleated Red Blood Cells # 0.0 Medications Medication Current Medications Prochlorperazine (Compazine) 10 mg Q4H PRN PO NAUSEA/VOMITING; Start 05/25/18 at 15:00 Ondansetron HCl (Zofran Inj) 4 mg Q6H PRN IV NAUSEA/VOMITING; Start 05/25/18 at 15:00 Al Hydrox/Mg Hydrox/Simethicone (Mag-Al Plus) 15 ml Q4H PRN PO .CONSTIPATION; Start 05/25/18 at 15:00 Docusate Sodium (Colace) 100 mg BID PO Last administered on 05/28/18 08:27; Admin Dose 100 MG; Start 05/26/18 at 09:00 Acetaminophen (Tylenol Tab) 650 mg Q4H PRN PO TEMP GREATER THAN 101F OR RABAGO; Start 05/25/18 at 15:00 IV Flush (NS 3 ml) 3 ml PER PROTOCOL IV ; Start 05/25/18 at 15:00 Naloxone HCl (Narcan) 0.2 mg Q2M PRN IV RR 8 BREATHS/MIN OR LESS; Start 05/25/18 at 15:00 Citalopram Hydrobromide (Celexa) 20 mg DAILY PO Last administered on 05/28/18 08:27; Admin Dose 20 MG; Start 05/26/18 at 09:00 Bupropion HCl (Wellbutrin Xl) 300 mg DAILY PO Last administered on 05/28/18 08:28; Admin Dose 300 MG; Start 05/26/18 at 09:00 Quetiapine Fumarate (Seroquel) 25 mg BID PO Last administered on 05/28/18 08:27; Admin Dose 25 MG; Start 05/25/18 at 21:00 Zolpidem Tartrate (Ambien) 5 mg HS MAY REPEAT X 1 PRN PO INSOMNIA; Start 05/25/18 at 17:00 Thyroid ([place] Thyroid) 120 mg DAILY PO Last administered on 05/28/18 08:28; Admin Dose 120 MG; Start 05/26/18 at 09:00 Atorvastatin Calcium (Lipitor) 40 mg HS PO Last administered on 05/27/18 20:45; Admin Dose 40 MG; Start 05/25/18 at 21:00 Non-Formulary Medication 2 ea HS PO Last administered on 05/27/18 22:13; Admin Dose 2 EA; Start 05/26/18 at 21:00 Docusate Sodium/ Ferrous Fumarate (Shonda-Sequels) 1 tab BID PO Last administered on 05/28/18at 08:27; Admin Dose 1 TAB; Start 05/27/18 at 21:00 Oxycodone/ Acetaminophen (Percocet (5/ 325)) 1 tab Q4H PRN PO MODERATE PAIN LEVEL 4-6; Start 05/27/18 at 10:30 Oxycodone/ Acetaminophen (Percocet (5/ 325)) 2 tab Q4H PRN PO MODERATE PAIN LEVEL 4-6 Last administered on 05/28/18at 11:52; Admin Dose 2 TAB; Start 05/27/18 at 10:30 Hydromorphone HCl (Dilaudid) 0.5 mg Q3H PRN IV SEVERE PAIN LEVEL 7-10; Start 05/27/18 at 10:30 Methocarbamol (Robaxin) 500 mg TID PRN PO MUSCLE SPASMS; Start 05/27/18 at 10:30 MARY JUAREZ MD May 28, 2018 12:20
[2018-05-28] MEDS ORDERED: KETOROLAC 30 MG INJ IV PRN (12:30)
[2018-05-28 13:19] VITALS: BP 114/64; PULSE 108; RESP 18
[2018-05-28] MEDS: GABAPENTIN 300 MG CAP PO SCH ×2 (14:12→20:54)
[2018-05-28] MEDS: KETOROLAC 30 MG INJ IV SCH ×2 (14:12→20:00)
[2018-05-28 20:30] VITALS: BP 131/62; PULSE 102; RESP 19
[2018-05-28] MEDS: ATORVASTATIN 40 MG TAB PO SCH (20:54)
[2018-05-28] MEDS: SUVOREXANT PO SCH (22:17)
[2018-05-29 02:46] VITALS: BP 134/72; PULSE 98; RESP 19
[2018-05-29 07:54] VITALS: BP 113/58; PULSE 91; RESP 18
[2018-05-29] MEDS: DOCUSATE SODIUM 100 MG CAP PO SCH (09:00)
[2018-05-29] MEDS: QUETIAPINE 25 MG TAB PO SCH (09:00)
[2018-05-29] MEDS: CITALOPRAM 20 MG TAB PO SCH (09:39)
[2018-05-29] MEDS: BUPROPION (XL) 150 MG TAB PO SCH (09:40)
[2018-05-29] MEDS: GABAPENTIN 300 MG CAP PO SCH ×2 (09:41→13:16)
[2018-05-29] MEDS: THYROID 60 MG TAB PO SCH (09:41)
[2018-05-29] MEDS: FERROUS FUMARATE (SR) TAB PO SCH (09:41)
--- NOTE | 2018-05-29 09:54 | CONS ---
Assessment/Plan Assessment/Plan Assessment/Plan (Daily) 1. Stable with right leg radic pain, will rev with ortho 2. Anemia noted, will be sure she takes otc iron on dc 3. Mood disorder, stable Consultation Date/Type/Reason Admit Date/Time May 25, 2018 at 05:36 Initial Consult Date Date/Time of Note DATE: 05/29/18 TIME: 09:52 Detailed Summary Respiratory: No cough, No shortness of breath Cardiovascular: No chest pain Gastrointestinal: no complaints Genitourinary: no complaints Musculoskeletal: back pain (mild to mod and right leg radic pain is unchanged) Exam/Review of Systems Exam Vitals Vital Signs Date Temp Pulse Resp B/P (MAP) Pulse Ox O2 O2 Flow FiO2 Time Delivery Rate 05/29/18 98.0 91 18 113/58 100 Room Air 07:54 (76) 05/25/18 2.0 20:00 Intake and Output 05/28/18 05/28/18 05/29/18 1515:00 23:00 07:00 IntakeIntake Total 200 ml 1000 ml 320 ml BalanceBalance 200 ml 1000 ml 320 ml Neck: No jvd Respiratory: clear to auscultation Cardiovascular: regular rate and rhythm Gastrointestinal: soft Extremities: No edema, No tenderness Neurological: No focal weakness Results Result Diagram: 05/28/18 1020 05/27/18 0824 Results 24hrs Laboratory Tests Test 05/28/18 10:20 White Blood Count 8.1 # Red Blood Count 2.80 L Hemoglobin 8.5 L Hematocrit 25.6 L Mean Corpuscular Volume 91.4 Mean Corpuscular Hemoglobin 30.4 Mean Corpuscular Hemoglobin Concent 33.2 Red Cell Distribution Width 12.6 Platelet Count 210 Mean Platelet Volume 9.6 Immature Granulocytes % 1.100 H Neutrophils % 75.3 Lymphocytes % 13.8 L Monocytes % 9.1 Eosinophils % 0.5 Basophils % 0.2 Nucleated Red Blood Cells % 0.0 Immature Granulocytes # 0.090 H Neutrophils # 6.1 Lymphocytes # 1.1 Monocytes # 0.7 Eosinophils # 0.0 Basophils # 0.0 Nucleated Red Blood Cells # 0.0 Medications Medication Current Medications Prochlorperazine (Compazine) 10 mg Q4H PRN PO NAUSEA/VOMITING; Start 05/25/18 at 15:00 Ondansetron HCl (Zofran Inj) 4 mg Q6H PRN IV NAUSEA/VOMITING Last administered on 05/28/18 22:02; Admin Dose 4 MG; Start 05/25/18 at 15:00 Al Hydrox/Mg Hydrox/Simethicone (Mag-Al Plus) 15 ml Q4H PRN PO .CONSTIPATION; Start 05/25/18 at 15:00 Docusate Sodium (Colace) 100 mg BID PO Last administered on 05/28/18 20:54; Admin Dose 100 MG; Start 05/26/18 at 09:00 Acetaminophen (Tylenol Tab) 650 mg Q4H PRN PO TEMP GREATER THAN 101F OR RABAGO; Start 05/25/18 at 15:00 IV Flush (NS 3 ml) 3 ml PER PROTOCOL IV ; Start 05/25/18 at 15:00 Naloxone HCl (Narcan) 0.2 mg Q2M PRN IV RR 8 BREATHS/MIN OR LESS; Start 05/25/18 at 15:00 Citalopram Hydrobromide (Celexa) 20 mg DAILY PO Last administered on 05/29/18 09:39; Admin Dose 20 MG; Start 05/26/18 at 09:00 Bupropion HCl (Wellbutrin Xl) 300 mg DAILY PO Last administered on 05/29/18 09 :40; Admin Dose 300 MG; Start 05/26/18 at 09:00 Quetiapine Fumarate (Seroquel) 25 mg BID PO Last administered on 05/28/18 20:54; Admin Dose 25 MG; Start 05/25/18 at 21:00 Zolpidem Tartrate (Ambien) 5 mg HS MAY REPEAT X 1 PRN PO INSOMNIA; Start 05/25/18 at 17:00 Thyroid ([place] Thyroid) 120 mg DAILY PO Last administered on 05/29/18 09:41; Admin Dose 120 MG; Start 05/26/18 at 09:00 Atorvastatin Calcium (Lipitor) 40 mg HS PO Last administered on 05/28/18 20:54; Admin Dose 40 MG; Start 05/25/18 at 21:00 Non-Formulary Medication 2 ea HS PO Last administered on 05/28/18 22:17; Admin Dose 2 EA; Start 05/26/18 at 21:00 Docusate Sodium/ Ferrous Fumarate (Shonda-Sequels) 1 tab BID PO Last adm inistered on 05/29/18 09:41; Admin Dose 1 TAB; Start 05/27/18 at 21:00 Oxycodone/ Acetaminophen (Percocet (5/ 325)) 1 tab Q4H PRN PO MODERATE PAIN LEVEL 4-6 Last administered on 05/29/18 07:09; Admin Dose 1 TAB; Start 05/27/18 at 10:30 Oxycodone/ Acetaminophen (Percocet (5/ 325)) 2 tab Q4H PRN PO MODERATE PAIN LEVEL 4-6 Last administered on 05/28/18 11:52; Admin Dose 2 TAB; Start 05/27/18 at 10:30 Hydromorphone HCl (Dilaudid) 0.5 mg Q3H PRN IV SEVERE PAIN LEVEL 7-10; Start 05/27/18 at 10:30 Methocarbamol (Robaxin) 500 mg TID PRN PO MUSCLE SPASMS; Start 05/27/18 at 10:30 Gabapentin (Neurontin) 300 mg TID PO Last administered on 05/29/18 09:41; Admin Dose 300 MG; Start 05/28/18 at 13:00 DEEPTI HARDY MD May 29, 2018 09:54
[2018-05-29] MEDS: OXYCODONE/ACETAMINOPHEN (5/325) TAB PO PRN (12:04)
--- NOTE | 2018-05-29 12:06 | PDOCDIS ---
Discharge Instructions CONDITION [id number] Patient Condition: [id number] Good HOME CARE INSTRUCTIONS: [id number] Diet Instructions: [id number] Regular ACTIVITY: [id number] Activity Restrictions: [id number] Avoid heavy lifting [id number] Bathing Restrictions: [id number] Shower FOLLOW UP/APPOINTMENTS Follow-up Plan Follow-up with Dr. Juarez in 2 weeks MARY JUAREZ MD May 29, 2018 12:06
== END 2018-05-29 14:55 | disposition home or self-care (01) | DRG 455 ==
LOC: REC 05:36 → MS1 17:00
PROVIDERS: ADMIT Orthopaedic Surgery; ATTEND Orthopaedic Surgery
PROC: 0SG10K1 Fusion of 2 or more Lumbar Vertebral Joints with Nonautologous Tissue Substitute, Posterior Approach, Posterior Column, Open Approach (ICD-10-PCS; 2018-05-25)
PROC: 0SB20ZZ Excision of Lumbar Vertebral Disc, Open Approach (ICD-10-PCS; 2018-05-25)
PROC: 4A11X4G Monitoring of Peripheral Nervous Electrical Activity, Intraoperative, External Approach (ICD-10-PCS; 2018-05-25)
PROC: 0SG10A0 Fusion of 2 or more Lumbar Vertebral Joints with Interbody Fusion Device, Anterior Approach, Anterior Column, Open Approach (ICD-10-PCS; principal; 2018-05-25 07:30)
DX: M51.36 Other intervertebral disc degeneration, lumbar region (principal); M48.061 Spinal stenosis, lumbar region without neurogenic claudication; M41.86 Other forms of scoliosis, lumbar region; K58.9 Irritable bowel syndrome, unspecified; F41.9 Anxiety disorder, unspecified; I45.10 Unspecified right bundle-branch block; E03.9 Hypothyroidism, unspecified; G47.00 Insomnia, unspecified; E78.5 Hyperlipidemia, unspecified; D50.9 Iron deficiency anemia, unspecified; F39 Unspecified mood [affective] disorder; M25.552 Pain in left hip; M79.605 Pain in left leg
CPT/HCPCS: 72100; 72110; 80048; 82728; 83540; 83735; 84100; 85014; 85018; 85025; 86850; 86900; 86901; 86920; 87086; 97110; 97116; 97162; 97530; J0131; J0690; J1100; J1170; J1644; J1885; J2001; J2250; J2405; J3010; J7120; L0639

== ENCOUNTER → 2018-06-04 | Outpatient (CLI) | payer MEDICARE, BC ==
[~2018-06-04] MED LIST: BUPR300T48 PO; CITA20TA8 PO; QUET25TA33 PO; SUVO10TA2 PO; THYR120T PO
== END | disposition home or self-care (01) ==
LOC: VAS 11:15
PROVIDERS: ATTEND Orthopaedic Surgery
DX: M79.662 Pain in left lower leg (principal); M79.661 Pain in right lower leg; R22.43 Localized swelling, mass and lump, lower limb, bilateral
CPT/HCPCS: 93970